=== PATIENT | female | born 1970 ===

== ENCOUNTER 2021-12-19 00:49 | Emergency (ER) | payer SELFPAY ==
[2021-12-19 01:30] VITALS: BP 171/101
[2021-12-19 01:56] LABS: Basophils # (Auto) 0.1 K/mm3 (0.0-0.1); Basophils % (Auto) 0.6 % (0.0-1.8); Eosinophils # (Auto) 0.3 K/mm3 (0.0-0.4); Eosinophils % (Auto) 3.2 % (0.0-4.3); Hematocrit 41.1 % (30.3-42.9); Lymphocytes # (Auto) 2.2 K/mm3 (1.2-5.4); Lymphocytes % (Auto) 22.2 % (13.4-35.0); Mean Corpuscular HGB Conc 34 % (30-34); Mean Corpuscular Volume 91 fl (79-97); Monocytes # (Auto) 0.8 K/mm3 (0.0-0.8); Monocytes % (Auto) 8.1 % (0.0-7.3); Platelet Count 239 K/mm3 (140-440); Red Blood Count 4.54 M/mm3 (3.65-5.03); Red Cell Distribution Width 13.1 % (13.2-15.2)
[2021-12-19 02:24] LABS: Alanine Aminotransferase 11 units/L (7-56); Albumin 3.9 g/dL (3.9-5); BUN/Creatinine Ratio 20; Blood Urea Nitrogen 16 mg/dL (7-17); Calcium 9.1 mg/dL (8.4-10.2); Hemolysis Index 18
[2021-12-19 02:29] LABS: Amorphous Crystals,Urine Few; Bacteria,Urine 2+ /HPF (Negative); Bilirubin,Urine NEG (Negative); Blood,Urine SM (Negative); Color,Urine Yellow (Yellow); Mucus,Urine FEW /HPF; Protein,Urine <15 mg/dL mg/dL (Negative); Urobilinogen,Urine < 2.0 mg/dL (<2.0)
--- NOTE | 2021-12-19 02:51 | Cat Scan Report ---
CT OF THE ABDOMEN AND PELVIS WITHOUT CONTRAST INDICATION / CLINICAL INFORMATION: Left flank and left pelvic pain. TECHNIQUE: All CT scans at this location are performed using CT dose reduction for ALARA by means of automated exposure control. COMPARISON: None available. FINDINGS: ABDOMEN: There is moderate left pelvocaliectasis. There is a 6 mm calculus in the proximal left urete r at the L2-3 level near the ureteropelvic junction on axial image #83. There are a couple of small a djacent nonobstructive calculi in the lower pole of the left kidney. There is a 4.3 cm simple cyst-ap pearing lesion in the left mid kidney posteriorly. The right kidney is normal. The liver, spleen, gallbladder, bile ducts, pancreas, adrenal glands and bowel demonstrate no signifi cant abnormality. No adenopathy is seen. The lung bases are clear. PELVIS: The distal ureters and urinary bladder are normal. The uterus and ovaries are not identified. A normal appendix is present and there is no evidence of diverticulitis. No abnormal mass or fluid c ollection is seen. There is a tiny fat-containing left periumbilical hernia without complication. No acute osseous abnormality is present. IMPRESSION: 6 mm calculus in the proximal left ureter is causing moderate hydronephrosis. Signer Name: Ranulfo Sanchez MD Signed: 12/19/2021 2:46 AM Workstation Name: [id number]
[2021-12-19] MEDS ORDERED: levoFLOXacin 750 MG TAB PO STA (04:17)
[2021-12-19] MEDS ORDERED: oxyCODONE /ACETAMINOPHEN 5-325MG TAB PO ONE (04:20)
--- NOTE | 2021-12-19 04:26 | Emergency Department Report ---
ED Abdominal Pain HPI - General Chief Complaint: Abdominal Pain Stated Complaint: SEVERE LEFT SIDE PAIN Source: patient Mode of arrival: Ambulatory Limitations: No Limitations - History of Present Illness Initial Comments: 51-year-old female 0 emergency department with a sudden onset of left flank pain that radiates down to her left suprapubic region associated with some nausea and one episode of vomiting. She reports no fever, chills, sweats no chest pain palpitation MD Complaint: flank pain -: Gradual Location: L flank Radiation: none, L flank Severity: mild Quality: dull Consistency: constant Improves With: nothing Worsens With: nothing Associated Symptoms: denies other symptoms - Related Data Previous Rx's Medication Instructions Recorded Last Taken Type Acetaminophen/Codeine [Tylenol #3] 1 tab PO Q6H PRN #15 tab 12/19/21 Unknown Rx Ciprofloxacin HCl 500 mg PO BID #20 12/19/21 Unknown Rx Tamsulosin [Flomax] 0.4 mg PO QDAY #10 cap 12/19/21 Unknown Rx Allergies Allergy/AdvReac Type Severity Reaction Status Date / Time No Known Allergies Allergy Unverified 12/19/21 01:34 ED Review of Systems ROS: Stated complaint: SEVERE LEFT SIDE PAIN Other details as noted in HPI Comment: All other systems reviewed and negative ED Past Medical Hx - Past Medical History Previous Medical History?: Yes Hx Hypertension: Yes Hx Psychiatric Treatment: Yes Additional medical history: High Cholesterol - Surgical History Past Surgical History?: Yes Additional Surgical History: Hysterectomy - Social History Smoking Status: Never Smoker Substance Use Type: None - Medications Home Medications: Home Medications Medication Instructions Recorded Confirmed Last Taken Type Acetaminophen/Codeine [Tylenol #3] 1 tab PO Q6H PRN #15 tab 12/19/21 Unknown Rx Ciprofloxacin HCl 500 mg PO BID #20 12/19/21 Unknown Rx Tamsulosin [Flomax] 0.4 mg PO QDAY #10 cap 12/19/21 Unknown Rx ED Physical Exam - General Limitations: No Limitations General appearance: alert, in no apparent distress - Head Head exam: Present: atraumatic, normocephalic - Eye Eye exam: Present: normal appearance, PERRL, EOMI Pupils: Present: normal accommodation - ENT ENT exam: Present: mucous membranes moist - Neck Neck exam: Present: normal inspection - Respiratory Respiratory exam: Present: normal lung sounds bilaterally. Absent: respiratory distress - Cardiovascular Cardiovascular Exam: Present: regular rate, normal rhythm. Absent: systolic murmur, diastolic murmur, rubs, gallop - GI/Abdominal GI/Abdominal exam: Present: soft, normal bowel sounds - Extremities Exam Extremities exam: Present: normal inspection - Back Exam Back exam: Present: normal inspection - Neurological Exam Neurological exam: Present: alert, oriented X3 - Psychiatric Psychiatric exam: Present: normal affect, normal mood - Skin Skin exam: Present: warm, dry, intact, normal color. Absent: rash ED Course Vital Signs 12/19/21 01:16 Temperature 98.1 F Pulse Rate 81 Respiratory 18 Rate Blood Pressure 171/101 O2 Sat by Pulse 98 Oximetry ED Medical Decision Making - Lab Data Result diagrams: 12/19/21 01:42 12/19/21 01:42 Critical care attestation.: If time is entered above; I have spent that time in minutes in the direct care of this critically ill patient, excluding procedure time. ED Disposition Clinical Impression: Kidney stone on left side Disposition: 01 HOME / SELF CARE / HOMELESS Is pt being admited?: No Does the pt Need Aspirin: No Condition: Stable Instructions: Abdominal Pain (ED), Low-Purine Eating Plan, Percutaneous Nephrolithotomy, Care After, Kidney Stones, [id number], Renal Colic, Laser Therapy for Kidney Stones, Care After Prescriptions: Ciprofloxacin HCl 500 mg PO BID #20 Tamsulosin [Flomax] 0.4 mg PO QDAY #10 cap Acetaminophen/Codeine [Tylenol #3] 1 tab PO Q6H PRN #15 tab PRN Reason: Pain
== END 2021-12-19 05:00 | disposition home or self-care (01) ==
LOC: ED 00:49
DX: N20.0 Calculus of kidney (principal); I10 Essential (primary) hypertension; E78.5 Hyperlipidemia, unspecified
CPT/HCPCS: 36415; 74176; 80053; 81001; 83690; 85025; 99284